=== PATIENT | female | born 1995 | race Caucasian/White ===

== ENCOUNTER 2017-09-30 22:45 | Inpatient (IN) | payer MEDICAID ==
[~2017-09-30] VITALS: Ht 165.1 cm; Wt 58.2 kg
[2017-09-30 23:04] LABS: BASOPHILS % (AUTO) 0.3 % (0.0-2.0); EOSINOPHILS % (AUTO) 1.3 % (1.0-6.0); HEMATOCRIT 34.3 % (36-46); HEMOGLOBIN 11.6 g/dL (12.0-16.0); LYMPHOCYTES # (AUTO) 1.6 K/uL (1.0-4.8); LYMPHOCYTES % (AUTO) 16.7 % (22.0-44.0); MEAN CORPUSCULAR HEMOGLOBIN 28.7 pg (26.0-34.0); MEAN CORPUSCULAR HGB CONC 33.9 G/dL (31.0-37.0); MEAN CORPUSCULAR VOLUME 85 fL (80-100); MONOCYTES # (AUTO) 0.8 K/uL (0.1-1.0); MONOCYTES % (AUTO) 8.7 % (2.0-9.0); NEUTROPHILS # (AUTO) 6.9 K/uL (1.8-7.7); PLATELET COUNT (AUTO) 287 K/uL (150-450); RED BLOOD CELL COUNT(AUTO) 4.05 MIL/uL (4.00-5.20); RED CELL DISTRIBUTION WIDTH 15.2 % (11.5-14.5)
[2017-09-30 23:14] LABS: ANION GAP 8 mmol/L (8-16); CALCIUM, TOTAL 8.4 mg/dL (8.8-10.5); CARBON DIOXIDE 27 mmol/L (22-29); CHLORIDE 104 mmol/L (98-107); CREATININE 0.75 mg/dL (0.60-1.30); GLOMERULAR FILTR. RATE CALC > 60 mL/min (>60); GLUCOSE,RANDOM 102 mg/dL (70-110); POTASSIUM 3.5 mmol/L (3.5-5.1); SODIUM SERUM 139 mmol/L (136-145); UREA NITROGEN, BLOOD 11 mg/dL (7-18)
[2017-09-30 23:19] LABS: ALANINE AMINOTRANSFERASE 30 U/L (12-78); ALBUMIN 3.8 g/dL (3.4-5.0); ALKALINE PHOSPHATASE 74 U/L (46-116); ASPARTATE AMINOTRANSFERASE 19 U/L (15-37); BILIRUBIN,TOTAL 0.4 mg/dL (0.1-1.0); TOTAL PROTEIN, SERUM 7.7 g/dL (6.4-8.2)
[2017-10-01] MEDS ORDERED: HALOPERIDOL 5 MG TABLET PO PRN (01:15)
[2017-10-01] MEDS ORDERED: ZOLPIDEM TARTRATE 10 MG TABLET PO PRN (01:15)
[2017-10-01 06:57] VITALS: BP 135/82
[2017-10-01 08:23] VITALS: BP 103/69
[2017-10-01] MEDS ORDERED: IBUPROFEN 400 MG TABLET PO PRN (13:30)
[2017-10-01] MEDS ORDERED: ACETAMINOPHEN 325 MG TABLET PO PRN (13:30)
[2017-10-01 16:26] VITALS: BP 105/67
[2017-10-01] MEDS: FERROUS SULFATE 325 MG EC TABLET PO SCH (16:27)
[2017-10-02 07:15] VITALS: BP 109/73
[2017-10-02] MEDS: FERROUS SULFATE 325 MG EC TABLET PO SCH ×3 (07:15→16:50)
[2017-10-02 08:00] VITALS: BP 109/70
[2017-10-02 09:22] LABS: HEMOGLOBIN A1C 5.6 % (4.5-6.2)
[2017-10-02 09:47] LABS: CHOL/HDL RATIO 1.9 (3.9-5.7); THYROID STIMULATING HORMONE 1.37 uIU/mL (0.36-3.74)
[2017-10-02 16:04] VITALS: BP 108/68
[2017-10-02] MEDS: LORazepam 2 MG TABLET PO PRN (16:50)
[2017-10-03 02:50] VITALS: BP 116/63
[2017-10-03] MEDS: MAG HYDROX/AL HYDROX/SIMETH 30 ML SUSP UDCUP PO PRN ×2 (03:17→12:25)
[2017-10-03] MEDS: FERROUS SULFATE 325 MG EC TABLET PO SCH ×3 (07:02→16:23)
[2017-10-03] MEDS: LORazepam 2 MG TABLET PO PRN (08:59)
[2017-10-03 16:35] VITALS: BP 110/71
[2017-10-04 04:10] VITALS: BP 107/73
[2017-10-04] MEDS: FERROUS SULFATE 325 MG EC TABLET PO SCH ×3 (06:42→16:39)
[2017-10-04 08:25] VITALS: BP 110/74
[2017-10-04] MEDS: DIVALPROEX SODIUM 250 MG DR TABLET PO SCH ×2 (09:48→16:39)
[2017-10-04 16:40] VITALS: BP 118/63
[2017-10-05] MEDS: FERROUS SULFATE 325 MG EC TABLET PO SCH ×3 (06:38→16:13)
[2017-10-05 06:52] VITALS: BP 104/60
[2017-10-05 08:31] VITALS: BP 102/59
[2017-10-05] MEDS: DIVALPROEX SODIUM 250 MG DR TABLET PO SCH ×2 (08:46→16:14)
[2017-10-05 16:17] VITALS: BP 109/67
[2017-10-05] MEDS ORDERED: DIVA250T25 PO (21:38)
[2017-10-05] MEDS ORDERED: FERR-89 PO (21:38)
[2017-10-06 06:20] VITALS: BP 110/65
[2017-10-06] MEDS: FERROUS SULFATE 325 MG EC TABLET PO SCH ×3 (06:32→16:20)
[2017-10-06 08:31] VITALS: BP 105/64
[2017-10-06] MEDS: DIVALPROEX SODIUM 250 MG DR TABLET PO SCH ×2 (08:40→16:20)
[2017-10-06 16:00] VITALS: BP 111/62
== END 2017-10-06 16:35 | disposition home or self-care (01) | DRG 750 ==
LOC: EMS 22:47 → B3A 10-01 01:00
PROVIDERS: ADMIT Psychiatry & Neurology Psychiatry; ATTEND Psychiatry & Neurology Psychiatry
DX: F25.9 Schizoaffective disorder, unspecified (principal); E83.51 Hypocalcemia; I10 Essential (primary) hypertension; D64.9 Anemia, unspecified; F84.0 Autistic disorder
CPT/HCPCS: 83036; 84443; 99285; G0480